=== PATIENT | female | born 1960 | race Caucasian/White ===

== ENCOUNTER → 2017-10-02 | Outpatient (CLI) | payer BC ==
--- NOTE | 2017-10-02 11:48 | MM ---
Reason for exam: additional evaluation requested from prior study. Last mammogram was performed 1 year and 5 months ago. History: Patient is postmenopausal and has history of breast cancer at age 40. Family history of breast cancer in grandmother at age 45 and breast cancer in sister at age 50. Reconstruction of the left breast, 2005. Mastectomy of the left breast, 2004. Reconstruction of the right breast, 2002. Mastectomy of the right breast, 2002. Lumpectomy of the right breast, 2000. Physical Findings: Nurse did not find any significant physical abnormalities on exam. MG Diagnostic Mammo w CAD ASIF Bilateral CC and MLO view(s) were taken. Prior study comparison: May 09, 2016, bilateral MG 3d diag mammo w/cad ASIF. The breast tissue is almost entirely fat. Post operative/therapy change on the right. These results were verbally communicated with the patient and result sheet given to the patient on 10/02/17. ASSESSMENT: Benign, BI-RAD 2 RECOMMENDATION: Routine screening mammogram of both breasts in 1 year.
== END ==
LOC: RADMAMWWP 09:20
PROVIDERS: ATTEND Obstetrics & Gynecology
DX: Z08 Encounter for follow-up examination after completed treatment for malignant neoplasm (principal); Z85.3 Personal history of malignant neoplasm of breast
CPT/HCPCS: 77066

== ENCOUNTER 2019-01-29 22:41 | Emergency (ER) | payer BC ==
[2019-01-29 22:51] VITALS: PULSE 74; TEMP 98.5
[2019-01-29] MEDS ORDERED: HYDROcodone/APAP 5-325MG 1 EACH TAB PO STA (23:02)
--- NOTE | 2019-01-29 23:02 | ED ---
Upper Extremity HPI - General Chief Complaint: Extremity Injury, Upper Stated Complaint: Fall Time Seen by Provider: 01/29/19 22:53 Source: patient Mode of arrival: ambulatory Limitations: no limitations - History of Present Illness Initial Comments: 58 year female presenting today for chief complaint of right wrist and hand pain. Patient states she was walking earlier in the day when she fell forward tripping over sign, he started her wrist bilaterally to prevent hitting her head. Patient denies any head neck back pain or injury. Patient denies any abdominal injury or abdominal pain. Patient states the pain is mostly in her hand. Patient states that she is able to move her wrist and her hand has most pain with pronation and supination. Patient states she did hurt her third digit a few weeks ago she states it has been getting better gradually. Remaining review of systems negative patient has no other complaints. Blood pressure noted to be high upon arrival. - Related Data Home Medications Medication Instructions Recorded Confirmed Thyroid,Pork [[place] Thyroid] 60 mg PO DAILY 01/29/19 01/29/19 Allergies Allergy/AdvReac Type Severity Reaction Status Date / Time No Known Allergies Allergy Verified 01/29/19 23:16 Review of Systems ROS Statement: Those systems with pertinent positive or pertinent negative responses have been documented in the HPI. ROS Other: All systems not noted in ROS Statement are negative. Past Medical History Past Medical History: Cancer Additional Past Medical History / Comment(s): breast ca History of Any Multi-Drug Resistant Organisms: None Reported Additional Past Surgical History / Comment(s): bilat mastectomy Past Psychological History: No Psychological Hx Reported Smoking Status: Never smoker Past Alcohol Use History: None Reported Past Drug Use History: None Reported General Exam - General Exam Comments Initial Comments: General: The patient is awake and alert, in no distress, and does not appear acutely ill. Eye: Pupils are equal, round and reactive to light, extra-ocular movements are intact. No nystagmus. There is normal conjunctiva bilaterally. No signs of icterus. Ears, nose, mouth and throat: There are moist mucous membranes and no oral lesions. No raccoon or [place] sign. Neck: The neck is supple, there is no tenderness or JVD. Cardiovascular: There is a regular rate and rhythm. No murmur, rub or gallop is appreciated. Respiratory: Lungs are clear to auscultation, respirations are non-labored, breath sounds are equal. No wheezes, stridor, rales, or rhonchi. Musculoskeletal: Upon flexion of the hands bilaterally there isEvidence of trauma. Mouth soft tissue swelling of the right hand in comparison with the left. Patient is tender with patient over the metacarpals. There is no point localized tenderness over the third digit DIP joint. Patient is able to range at the wrist bilaterally including flexion-extension she'll take the okay fingers crossed thumbs-up and oppose the small digit and thumb. Patient has no limitations in range of motion at the MTP DIP or PIP joints. Full strength. Sensation intact the proximal distal to injury site. No evidence of her strep. Radial pulses are equal in person bilaterally both proximal distal to injury site. No anatomical snuffbox tenderness. Neurological: A&O x 3. CN II-XII intact, There are no obvious motor or sensory deficits. Coordination appears grossly intact. Speech is normal. Skin: Skin is warm and dry and no rashes or lesions are noted. Psychiatric: Cooperative, appropriate mood & affect, normal judgment. Limitations: no limitations Course Vital Signs 01/29/19 01/30/19 22:48 00:14 Temperature 98.5 F 98.5 F Pulse Rate 74 74 Respiratory 17 18 Rate Blood Pressure 185/100 147/79 O2 Sat by Pulse 95 100 Oximetry Medical Decision Making - Medical Decision Making Well-appearing 58-year-old female presenting for fall with right wrist and hand pain. Imaging studies reveal what appears to be acute fracture of the distal phalanx. Patient states she bruises his oral because she had previous injury 3 weeks prior. Patient has no current point localized tenderness. Full range of motion at the joints of the hand and wrist. Patient is no evidence of wrist fracture on imaging studies she does have significant hand pain over the metacarpals no evidence of osseous injury upon review. Patient was placed in a splint for comfort. Neurovascular intact no changes after splint placement. Patient refused [place] states she will just take a normal Tylenol. Patient appears well no other complaints. This time I recommend patient follow-up with orthopedics and is stable for discharge. Patient agreeable care plan. I did discuss patients elevated blood pressure and recommended primary care follow-up. Disposition Clinical Impression: Distal phalanx or phalanges, closed fracture, Wrist pain, Fall, Hand pain Disposition: HOME SELF-CARE Condition: Good Instructions (If sedation given, give patient instructions): Wrist Injury (ED), Finger Fracture (ED) Additional Instructions: Please use medication as discussed. Please follow-up with orthopedic surgery for consultation. Please keep splint in place. Please return to emergency room if the symptoms increase or worsen or for any other concerns. Is patient prescribed a controlled substance at d/c from ED?: No Referrals: Tavo Vargas DO [Primary Care Provider] - 1-2 days Kimani Tabares MD [STAFF PHYSICIAN] - 1-2 days Time of Disposition: 23:46
[2019-01-29] MEDS ORDERED: IBUPROFEN 600 MG TAB PO STA (23:19)
--- NOTE | 2019-01-29 23:37 | XR ---
INDICATION: Right wrist pain COMPARISON: None. FINDINGS: PA, oblique, lateral, and scaphoid views of the right wrist are obtained. Bony structures are intact. Bone mineralization and alignment are within normal limits. Joint spaces are preserved. Soft tissues appear mildly swollen about the wrist. IMPRESSION: No acute fracture or dislocation identified. Mild soft tissue swelling.
--- NOTE | 2019-01-29 23:39 | XR ---
INDICATION: Right hand pain COMPARISON: None FINDINGS: Frontal, oblique, and lateral views of the right hand obtained. There is an acute traumatic nondisplaced fracture through the medial base of the distal phalanx of the third finger, extending to the third DIP joint. Remainder of the osseous structures appear intact. There is no dislocation. There is mild soft tissue swelling of the third finger. IMPRESSION: Acute nondisplaced intra-articular fracture through the medial base of the third distal phalanx.
[2019-01-30 00:15] VITALS: BP 147/79; RESP 18
--- NOTE | 2019-02-04 01:52 | CDI ---
Dear Amos Rosario MD: Please do addendum type of the splint applied. Thank you, Melany Burks, [place]. If you have any questions, please contact [facility] at [phone]. [facility]
== END 2019-01-30 00:13 | disposition home or self-care (01) ==
LOC: EC 22:41
DX: S62.662A Nondisplaced fracture of distal phalanx of right middle finger, initial encounter for closed fracture (principal); M25.531 Pain in right wrist; R03.0 Elevated blood-pressure reading, without diagnosis of hypertension; Z85.3 Personal history of malignant neoplasm of breast; Z90.13 Acquired absence of bilateral breasts and nipples; W01.0XXA Fall on same level from slipping, tripping and stumbling without subsequent striking against object, initial encounter; Y93.01 Activity, walking, marching and hiking; Y92.410 Unspecified street and highway as the place of occurrence of the external cause; Z53.29 Procedure and treatment not carried out because of patient's decision for other reasons
CPT/HCPCS: 29125; 99283

== ENCOUNTER → 2019-02-13 | Outpatient (CLI) | payer BC ==
--- NOTE | 2019-02-14 09:13 | MM ---
Reason for exam: screening (asymptomatic). Last mammogram was performed 1 year and 4 months ago. History: Patient is postmenopausal and has history of breast cancer at age 40. Family history of breast cancer in grandmother at age 45 and breast cancer in sister at age 50. Reconstruction of the left breast, 2004. Mastectomy of the left breast, 2004. Reconstruction of the right breast, 2002. Mastectomy of the right breast, 2002. Lumpectomy of the right breast, 2000. Physical Findings: A clinical breast exam by your physician is recommended on an annual basis and results should be correlated with mammographic findings. MG 3D Screening Mammo W/Cad Bilateral CC and MLO view(s) were taken. Prior study comparison: October 02, 2017, bilateral MG diagnostic mammo w CAD ASIF. May 09, 2016, bilateral MG 3d diag mammo w/cad ASIF. The breast tissue is almost entirely fat. Right fat necrosis. No suspicious abnormality. Post operative change of both breasts. No significant changes when compared with prior studies. ASSESSMENT: Benign, BI-RAD 2 RECOMMENDATION: Routine screening mammogram of both breasts in 1 year.
== END | disposition home or self-care (01) ==
LOC: RADMAMWWP 08:04
PROVIDERS: ATTEND Obstetrics & Gynecology
DX: Z12.31 Encounter for screening mammogram for malignant neoplasm of breast (principal); Z80.3 Family history of malignant neoplasm of breast; Z90.13 Acquired absence of bilateral breasts and nipples
CPT/HCPCS: 77063; 77067